=== PATIENT | female | born 1995 | race African-American/Black ===

== ENCOUNTER 2018-08-18 13:08 | Emergency (ER) | payer OTHER ==
[~2018-08-18] VITALS: Ht 157.5 cm; Wt 99.8 kg
[2018-08-18 13:46] LABS: CALCIUM 9.6 mg/dL (8.5-10.1); CREATININE 0.7 mg/dL (0.6-1.0); POTASSIUM 3.7 mmol/L (3.5-5.1)
[2018-08-18 13:51] LABS: HEMATOCRIT 30.5 % (37.0-47.0); HEMOGLOBIN 9.4 gm/dL (12.0-15.0); MCH 22.6 pg (26.0-34.0); MCHC 30.9 g/dL (28.0-37.0); MCV 73.1 fL (80.0-100.0); RBC 4.17 mil/uL (4.20-5.00); RDW 19.1 % (10.5-14.5); WBC 11.4 thou/uL (4.0-11.0)
[2018-08-18 14:04] VITALS: BP 164/83
== END 2018-08-18 14:09 | disposition short-term general hospital (02) ==
LOC: ER 13:08
PROVIDERS: Emergency Medicine
DX: O60.03 Preterm labor without delivery, third trimester (principal); J45.909 Unspecified asthma, uncomplicated; Z3A.32 32 weeks gestation of pregnancy